=== PATIENT | male | born 1975 | race Native Hawaiian/Other Pacific Islander ===

== ENCOUNTER 2017-08-08 05:30 | Emergency (ER) | payer MEDICAID, OTHER ==
[2017-08-08 05:44] VITALS: TEMP 97.5; O2SAT 99
[2017-08-08] MEDS ORDERED: Tdap Vaccine 0.5 ml Vial (10-64 yrs) IM ONE ×2 (05:47→06:48)
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
[2017-08-08] MEDS ORDERED: Lidocaine 1% w Epi 1:100,000 Inj INJ ONE (05:56)
[2017-08-08] MEDS ORDERED: Bacitracin 500 Units/gm Oint Foilpak UD ONE (06:30)
[2017-08-08 07:22] VITALS: BP 130/75; PULSE 72; RESP 18
== END 2017-08-08 07:22 | disposition home or self-care (01) ==
LOC: C.ER 05:30
DX: S41.111A Laceration without foreign body of right upper arm, initial encounter (principal); W40.8XXA Explosion of other specified explosive materials, initial encounter; Y92.89 Other specified places as the place of occurrence of the external cause; Y99.0 Civilian activity done for income or pay